=== PATIENT | female | born 1995 | race Caucasian/White ===

== ENCOUNTER → 2016-05-22 | Outpatient (CLI) | payer OTHER ==
--- NOTE | 2016-05-22 12:31 | DIAGNOSTIC IMAGING REPORT ---
KUB CLINICAL HISTORY: Nephrolithiasis. COMPARISON STUDY: CT of the abdomen and pelvis May 03, 2016 and KUB May 07, 2016. FINDINGS: Bowel gas pattern is normal. There is a possible 3 mm calculus within the upper pole of the right kidney. No ureteral calculi are identified. IMPRESSION: 1. Possible 3 mm right renal calculus. 2. No ureteral calculi identified. Electronically signed by: Hiro Malin M.D. 05/22/2016 12:29 PM Dictated Date/Time: 05/22/2016 12:27 PM
== END | disposition home or self-care (01) ==
LOC: C.RAD 10:18
PROVIDERS: ATTEND Nurse Practitioner Family
DX: N20.0 Calculus of kidney (principal)

== ENCOUNTER → 2016-05-22 | Outpatient (CLI) | payer OTHER | END | disposition home or self-care (01) | LOC: C.LABSPEC 17:14 | PROVIDERS: ATTEND Nurse Practitioner Family | DX: N20.0 Calculus of kidney (principal) ==

== ENCOUNTER 2017-06-01 15:58 | Emergency (ER) | payer OTHER ==
[~2017-06-01] VITALS: Ht 154.9 cm; Wt 55.2 kg
[2017-06-01 16:34] VITALS: TEMP 37.5; Ht 154.9 cm; Wt 55.2 kg
--- NOTE | 2017-06-01 18:28 | EMERGENCY ROOM VISIT NOTE ---
History Report prepared by Trish: Wanda Urbina Under the Supervision of: Dr. Maria Elena Roe D.O. First contact with patient: 18:06 Chief Complaint: CHEST PAIN Stated Complaint: CHEST PAIN, NUMBNESS IN ARM Nursing Triage Summary: patient to Ed via triage for "heaviness in chest since yesterday", states "its like its harder to breath, I went to [facility] ED last night and they didn't find anything, but it didn't go away so I came here." History of Present Illness The patient is a 22 year old female who presents to the Emergency Room with complaints of constant chest tightness beginning last night. The patient states her symptoms began as a sharp left head pain. She reports she then started to get chest tightness which radiated to her left arm. She states then she started to get tingling in her left fingers. The patient was sitting in a recliner when her pain started. She reports she went to a [place] ED last night where she had an EKG, blood work, and a chest X-ray done which were all unremarkable. While in the ED, the patient was also given medication to rule out reflux. The patient reports her chest tightness never resided so she decided to return to the ED. Presently, the patient is still having aches in her left arm. She notes her headache has been intermittent since her symptoms began. She denies any recent travel, recent sickness, increased activity, or changes in medication. Pt denies headache, change in vision, fevers, shortness of breath, nausea, vomiting, diarrhea, pain with urination, and melena. The patient's father has a history of a quadruple bypass at the age of 38, stents and a a couple strokes. The patient also has a family history of blood clots. Source of History: patient Onset: last night Position: chest Quality: other (tightness) Timing: constant Associated Symptoms: + headache, + chest pain, + numbness, No fevers, No SOB , No nausea, No vomiting, No diarrhea, No urinary symptoms Review of Systems See HPI for pertinent positives & negatives. A total of 10 systems reviewed and were otherwise negative. Past Medical & Surgical Medical Problems: (1) No Known Active Medical Problems Family History Blood clots Stroke Social History Smoking Status: Never Smoker Smokeless Tobacco Use: No Marital Status: single Housing Status: lives with family Current/Historical Medications No Active Prescriptions or Reported Meds Allergies Coded Allergies: No Known Allergies (Unverified , 06/01/17) Physical Exam Vital Signs Date Time Temp Pulse Resp B/P (MAP) Pulse Ox O2 Delivery O2 Flow Rate FiO2 06/01/17 20:00 75 14 113/69 99 Room Air 06/01/17 19:15 73 06/01/17 16:38 99 Room Air 06/01/17 16:34 37.5 83 20 131/84 97 Room Air Physical Exam GENERAL: alert, well appearing, well nourished, no distress, non-toxic EYE EXAM: normal conjunctiva, PERRL and EOM's grossly intact OROPHARYNX: no exudate, no erythema, lips, buccal mucosa, and tongue normal and mucous membranes are moist NECK: supple, no nuchal rigidity, no adenopathy, non-tender LUNGS: Clear to auscultation. Normal chest wall mechanics HEART: no murmurs, S1 normal and S2 normal ABDOMEN: abdomen soft, non-tender, normo-active bowel sounds, no masses, no rebound or guarding. BACK: Back is symmetrical on inspection and there is no deformity, no midline tenderness, no CVA tenderness. SKIN: no rashes and no bruising UPPER EXTREMITIES: upper extremities are grossly normal. LOWER EXTREMITIES: No pitting edema. NEURO EXAM: Normal sensorium, cranial nerves II-XII grossly intact, normal speech, no gross weakness of arms, no gross weakness of legs. Medical Decision & Procedures ER Provider Diagnostic Interpretation: Radiology results have been interpreted by the radiologist and reviewed by me. (CHEST FOR PE) ANGIO WITH FINDINGS: There is a normal caliber thoracic aorta with no evidence for dissection. There is no evidence for pulmonary embolus. No pleural effusions. No pneumothorax. The liver and spleen are unremarkable. No mediastinal or hilar lymphadenopathy. The central airways are patent. The lungs are clear. IMPRESSION: No evidence for pulmonary embolus. The lungs are clear. The above report was generated using voice recognition software. It may contain grammatical, syntax or spelling errors. Electronically signed by: Chris Gibson M.D. Laboratory Results 06/01/17 19:00 Red Blood Count 4.59, Mean Corpuscular Volume 92.4, Mean Corpuscular Hemoglobin 31.4, Mean Corpuscular Hemoglobin Concent 34.0, Mean Platelet Volume 10.7, Neutrophils (%) (Auto) 64.0, Lymphocytes (%) (Auto) 27.9, Monocytes (%) (Auto) 6.6, Eosinophils (%) (Auto) 0.8, Basophils (%) (Auto) 0.5, Neutrophils # (Auto) 4.25, Lymphocytes # (Auto) 1.85, Monocytes # (Auto) 0.44, Eosinophils # (Auto) 0.05, Basophils # (Auto) 0.03 06/01/17 19:00 Test 06/01/17 19:00 White Blood Count 6.63 K/uL (4.8-10.8) Red Blood Count 4.59 M/uL (4.2-5.4) Hemoglobin 14.4 g/dL (12.0-16.0) Hematocrit 42.4 % (37-47) Mean Corpuscular Volume 92.4 fL (80-100) Mean Corpuscular Hemoglobin 31.4 pg (25-34) Mean Corpuscular Hemoglobin Concent 34.0 g/dl (32-36) Platelet Count 212 K/uL (130-400) Mean Platelet Volume 10.7 fL (7.4-10.4) Neutrophils (%) (Auto) 64.0 % Lymphocytes (%) (Auto) 27.9 % Monocytes (%) (Auto) 6.6 % Eosinophils (%) (Auto) 0.8 % Basophils (%) (Auto) 0.5 % Neutrophils # (Auto) 4.25 K/uL (1.4-6.5) Lymphocytes # (Auto) 1.85 K/uL (1.2-3.4) Monocytes # (Auto) 0.44 K/uL (0.11-0.59) Eosinophils # (Auto) 0.05 K/uL (0-0.5) Basophils # (Auto) 0.03 K/uL (0-0.2) RDW Standard Deviation 43.6 fL (36.4-46.3) RDW Coefficient of Variation 12.9 % (11.5-14.5) Immature Granulocyte % (Auto) 0.2 % Immature Granulocyte # (Auto) 0.01 K/uL (0.00-0.02) Prothrombin Time 10.6 SECONDS (9.0-12.0) Prothromb Time International Ratio 1.0 (0.9-1.1) D-Dimer 240 ug/L FEU (0-500) Anion Gap 6.0 mmol/L (3-11) Est Creatinine Clear Calc Drug Dose 103.2 ml/min Estimated GFR () 147.1 Estimated GFR (Non- 126.9 BUN/Creatinine Ratio 13.5 (10-20) Calcium Level 9.2 mg/dl (8.5-10.1) Magnesium Level 2.0 mg/dl (1.8-2.4) Total Bilirubin 0.6 mg/dl (0.2-1) Aspartate Amino Transf (AST/SGOT) 14 U/L (15-37) Alanine Aminotransferase (ALT/SGPT) 19 U/L (12-78) Alkaline Phosphatase 79 U/L (45-117) Troponin I < 0.015 ng/ml (0-0.045) Total Protein 7.4 gm/dl (6.4-8.2) Albumin 4.2 gm/dl (3.4-5.0) Globulin 3.2 gm/dl (2.5-4.0) Albumin/Globulin Ratio 1.3 (0.9-2) Thyroid Stimulating Hormone (TSH) 0.650 uIu/ml (0.300-4.500) Human Chorionic Gonadotropin, Qual NEG (NEG) Lyme Disease IgG Antibody NEG (NEG) Laboratory results per my review. Medications Administered Medications (Trade) Dose Ordered Sig/Akira Route Start Time Stop Time Status Last Admin Dose Admin Ketorolac Tromethamine (Toradol Inj) 30 mg NOW STAT IV 06/01/17 20:41 06/01/17 20:42 DC 06/01/17 20:57 30 MG ECG Indication: chest pain Rate (beats per minute): 73 Rhythm: sinus rhythm Findings: no acute ischemic change, no ectopy, other (normal axis normal intervals) Change: EKG interpreted by me. ED Course 1810: The patient was evaluated in room B11A. A complete history and physical exam was performed. 2040: Ordered Toradol Inj 30 mg IV. 2117: The patient is still having pain. 2121: Ordered Maalox Susp 30 ml PO. 2218: I updated the patient on her test results. She denies any change in her pain. I offered her additional pain medication and she declined. 2225: Upon reevaluation, the patient is feeling better. I discussed the findings and the treatment plan with the patient. She verbalizes agreement and understanding. The patient was discharged home. Medical Decision Differential diagnosis: Etiologies such as cardiac ischemia, aortic dissection, pulmonary embolism, pneumonia, pneumothorax, musculoskeletal, infections, pericarditis, myocarditis , esophageal rupture, gastrointestinal, as well as others were entertained. HEART socre 0 low risk wells, PERC neg, CTA negative Pt well appearing here. No change in pain with meds however did not appear in any distress. VS stable throughout. Discussed close f/u with PCP and possible need for additional evaluation. Discussed sx to watch/return for, she verbalized understanding. No evidence of occult infection, no evidence of vascular pathology. Medication Reconcilliation Current Medication List: was personally reviewed by me Blood Pressure Screening Patient's blood pressure: Elevated blood pressure Blood pressure disposition: Elevated BP felt to be situational Impression Primary Impression: Chest pain Scribe Attestation The scribe's documentation has been prepared under my direction and personally reviewed by me in its entirety. I confirm that the note above accurately reflects all work, treatment, procedures, and medical decision making performed by me. Departure Information Dispostion Home / Self-Care Prescriptions No Active Prescriptions or Reported Meds Referrals Edel Pelletier (PCP) Forms HOME CARE DOCUMENTATION FORM, IMPORTANT VISIT INFORMATION Patient Instructions My [facility] Additional Instructions Please follow up with your family doctor. If your symptoms are persistent, you may require additional evaluation by specialists. You may use Tylenol and ibuprofen [id number] as needed for pain. Please monitor for any changes in your symptoms or new an evolving symptoms. If you develop worsening pain, dizziness, vomiting, fevers, trouble breathing, notice blood in your sputum, develop black or bloody stools, or you've any other new concerns, please return the emergency room. Problem Qualifiers Primary Impression: Chest pain Chest pain type: unspecified Qualified Codes: R07.9 - Chest pain, unspecified
[2017-06-01 19:22] LABS: BASO % 0.5 %; BASO ABS # 0.03 K/uL (0-0.2); EOS % 0.8 %; EOS ABS # 0.05 K/uL (0-0.5); HEMATOCRIT 42.4 % (37-47); HEMOGLOBIN 14.4 g/dL (12.0-16.0); IG# 0.01 K/uL (0.00-0.02); LYMPH % 27.9 %; LYMPH ABS # 1.85 K/uL (1.2-3.4); MEAN CELL VOLUME 92.4 fL (80-100); MEAN CORPUSCULAR HEMOGLOBIN 31.4 pg (25-34); MEAN PLATELET VOLUME 10.7 fL (7.4-10.4); MONO % 6.6 %; MONO ABS # 0.44 K/uL (0.11-0.59); NEUT ABS # 4.25 K/uL (1.4-6.5); PLATELET COUNT 212 K/uL (130-400); RED CELL DISTRIBUTION WIDTH CV 12.9 % (11.5-14.5); RED CELL DISTRIBUTION WIDTH SD 43.6 fL (36.4-46.3); WHITE BLOOD COUNT 6.63 K/uL (4.8-10.8)
[2017-06-01 19:31] LABS: ALBUMIN 4.2 gm/dl (3.4-5.0); ALT/SGPT 19 U/L (12-78); AST/SGOT 14 U/L (15-37); BLOOD UREA NITROGEN 9 mg/dl (7-18); CALCIUM 9.2 mg/dl (8.5-10.1); CARBON DIOXIDE 27 mmol/L (21-32); CREATININE 0.65 mg/dl (0.60-1.20); GLUCOSE 82 mg/dl (70-99); POTASSIUM 3.5 mmol/L (3.5-5.1); SODIUM 139 mmol/L (136-145)
[2017-06-01 19:42] LABS: ALKALINE PHOSPHATASE 79 U/L (45-117); TOTAL PROTEIN 7.4 gm/dl (6.4-8.2)
[2017-06-01 20:00] VITALS: BP 113/69; PULSE 75; O2SAT 99
[2017-06-01] MEDS ORDERED: KETOROLAC TROMETHAMINE 30 MG/ML VIAL IV STA (20:41)
[2017-06-01] MEDS ORDERED: ALUMINUM/MAGNESIUM SUSP 30 ML UDC PO STA (21:22)
[2017-06-01] MEDS ORDERED: OPTIRAY 320 IV PRN (21:45)
--- NOTE | 2017-06-01 22:11 | DIAGNOSTIC IMAGING REPORT ---
(CHEST FOR PE) ANGIO WITH CT DOSE: 220.83 mGy.cm HISTORY: Chest pain dyspnea TECHNIQUE: Multiaxial CT images of the chest were performed following the intravenous administration of contrast to evaluate the pulmonary arteries. Maximal intensity projection images were also obtained. A dose lowering technique was utilized adhering to the principles of ALARA. COMPARISON STUDY: None. FINDINGS: There is a normal caliber thoracic aorta with no evidence for dissection. There is no evidence for pulmonary embolus. No pleural effusions. No pneumothorax. The liver and spleen are unremarkable. No mediastinal or hilar lymphadenopathy. The central airways are patent. The lungs are clear. IMPRESSION: No evidence for pulmonary embolus. The lungs are clear. The above report was generated using voice recognition software. It may contain grammatical, syntax or spelling errors. Electronically signed by: Chris Gibson M.D. 06/01/2017 10:10 PM Dictated Date/Time: 06/01/2017 10:08 PM
[2017-06-01] MEDS ORDERED: ACETAMINOPHEN 500 MG TAB PO STA (22:18)
== END 2017-06-01 22:30 | disposition home or self-care (01) ==
LOC: C.EDB 15:59
DX: R07.89 Other chest pain (principal); R51 Headache; Z82.3 Family history of stroke; Z82.49 Family history of ischemic heart disease and other diseases of the circulatory system; Z83.2 Family history of diseases of the blood and blood-forming organs and certain disorders involving the immune mechanism

== ENCOUNTER → 2017-12-30 | Outpatient (CLI) | payer OTHER ==
--- NOTE | 2017-12-30 13:01 | DIAGNOSTIC IMAGING REPORT ---
RENAL ULTRASOUND CLINICAL HISTORY: Stones. COMPARISON STUDY: CT of the abdomen and pelvis May 03, 2016 and KUB May 22, 2016. TECHNIQUE: Sonography of the kidneys and the urinary bladder was performed. FINDINGS: There is no hydronephrosis. Slight prominence of the right collecting system is likely within normal limits. The right kidney measures 10 cm in maximal dimension and the left measures 9.3 cm. A 4 mm echogenic focus within the left renal sinus favors a calculus. Both ureteral jets were identified. Renal echogenicity, size and cortical thickness are normal. IMPRESSION: 1. No hydronephrosis. 2. Probable 4 mm left renal calculus. Electronically signed by: Hiro Malin M.D. 12/30/2017 1:00 PM Dictated Date/Time: 12/30/2017 12:58 PM
== END | disposition home or self-care (01) ==
LOC: C.ULTR 12:03
PROVIDERS: ATTEND Urology
DX: N20.0 Calculus of kidney (principal)

== ENCOUNTER → 2017-12-30 | Outpatient (CLI) | payer OTHER | END | disposition home or self-care (01) | LOC: C.LAB1850 13:37 | PROVIDERS: ATTEND Internal Medicine Nephrology | DX: N20.0 Calculus of kidney (principal); E55.9 Vitamin D deficiency, unspecified ==